=== PATIENT | male | born 1995 | race Caucasian/White ===

== ENCOUNTER 2024-05-28 19:51 | Observation (INO) | payer OTHER, SELFPAY ==
--- NOTE | ~2024-05-28 | CT_ITS ---
CLINICAL INDICATION: Right lower quadrant pain COMPARISON: None. TECHNIQUE: Multiple contiguous axial images of the abdomen and pelvis were performed following the ad ministration of with 100 mL Omnipaque-350 intravenous contrast The dose-length product (DLP) was 735.29 mGy-cm. Automated exposure control and iterative reconstruction technique were employed. FINDINGS/OBSERVATIONS: Visualized lower thorax: The bilateral lung bases are clear. The heart is of normal size, without pericardial effusion. Small hiatal hernia is present. Within the abdomen and pelvis: The appendix is hyperemic, fluid-filled, and thick walled measuring 9 mm in caliber with surrounding inflammatory change. These findings are consistent with acute appendicitis. Liver, spleen, bilateral kidneys, gallbladder and bilateral adrenal glands are unremarkable. The bladder is decompressed. The prostate gland is not enlarged. IMPRESSION: Acute appendicitis, as detailed above. Reviewed, dictated and finalized at location A.
--- OUTSIDE RECORDS SUMMARY | 2024-05-28 19:53 | XMS_ITS | Clinical Summary ---
Author Organization [facility] Address [address] [place] [address] Care Team Providers Care Labor Relations Officer Name Role Phone Zain Feliciano DO Primary Care Provider Source Comments [facility],non-[facility] Affiliates and Associated Physician Practices is amultiple site organization consisting of ambulatory clinics and hospital sitesin [place], [place], [place] and [place]. This disclosure is being madepursuant to the Care Everywhere program and may not contain all information available regarding this patient. Last updated 17.[facility] Allergies No known active allergies Medications * Be aware that medications may not be up to date on this document. Alwaysverify current medications with the patient. Medication Sig Dispensed Refills Start Date End Date Status Cetirizine-Pseudoephed rine (ZYRTEC-D PO) Take 1 Tab by mouth as needed. Active albuterol HFA (PROVENTIL;VENTOLIN;HI OAIR) 108 (90 BASE) MCG/ACT inhaler Inhale 2 Puffs by mouth every 6 hours as needed. Active benzonatate (TESSALON) 100 MG capsule You can take 1-2 tablets PO TID PRN, max dose 6 tablets in 24 hours. 30 Cap 04/19/2016 Active Fluticasone Propionate (FLONASE NA) Active Family History Medical History Relation Name Comments Negative Family History Father Negative Family History Mother Relation Name Status Comments Father Mother Social History Tobacco Use Types Packs/Day Years Used Date Smoking Tobacco: Never Alcohol Use Standard Drinks/Week Comments No 0 (1 standard drink = 0.6 oz pur e alcohol) Sex and Gender Information Value Date Recorded Sex Assigned at Not on file Gender Identity Not on file Sexual Orientation Not on file Last Filed Vital Signs Vital Sign Reading Time Taken Comments Blood Pressure 128/80 04/19/2016 11:27 AM CABLE SPLICER HELPER Pulse 84 04/19/2016 11:27 AM CABLE SPLICER HELPER Temperature 36.7 C (98.1 F) 04/19/2016 11:27 AM CABLE SPLICER HELPER Respiratory Rate 20 04/19/2016 11:27 AM CABLE SPLICER HELPER Oxygen Saturation 98% 04/19/2016 11:27 AM CABLE SPLICER HELPER Inhaled Oxygen Concentration - - Weight 83.9 kg (185 lb) 04/19/2016 11:27 AM CABLE SPLICER HELPER Height 180.3 cm (5' 11 ) 04/19/2016 11:27 AM CABLE SPLICER HELPER Body Mass Index 25.8 04/19/2016 11:27 AM CABLE SPLICER HELPER Plan of Treatment Health Maintenance Due Date Last Done Comments HIV SCREENING 2009 HEPATITIS C SCREENING 06/01/2012 DTAP/TDAP/TD VACCINES (1 - Tdap) 2013 HEPATITIS B VACCINE (1 of 3 - 19+ 3-dose series) 2013 COVID-19 VACCINE ( - 2023-2 5 season) 2023 DEPRESSION SCREENING 02/22/2024 INFLUENZA VACCINE (Season Ended) 2024 ZOSTER VACCINE (1 of 2) 2044 HIB VACCINE Aged Out No longer eligi ble based on patient's age to complete this topic HPV VACCINE Aged Out No longer eligi ble based on patient's age to complete this topic MENINGOCOCCAL (Group B) VACC INE SHARED DECISION-MAKING Aged Out No longer eligibl e based on patient's age to complete this topic MENINGOCOCCAL GROUPS A/C/Y/W VACCINE Aged Out No longer eligible b ased on patient's age to complete this topic PNEUMOCOCCAL VACCINE Aged Out No long er eligible based on patient's age to complete this topic Care Teams Labor Relations Officer Relationship Specialty Start Date End Date Zain Feliciano DO PCP - General 02/22/19
[2024-05-28 20:13] VITALS: BP 119/54; PULSE 85; RESP 16; TEMP 37; O2SAT 97
[2024-05-28 22:03] LABS: Basophils Absolute Auto 0.1 K/mm3 (0.0-0.1); Basophils Percent Auto 0.3 % (0.2-1.2); Eosinophils Percent Auto 0.1 % (0-4.4); Hemoglobin 14.8 g/dL (14.0-18.0); Immature Granulocyte Percent A 0.5 % (0-0.5); Lymphocytes Absolute Auto 0.53 K/mm3 (0.9-3.2); Lymphocytes Percent Auto 2.9 % (18.3-44.2); Mean Corpuscular HGB Conc 36.1 g/dl (32-36); Mean Corpuscular Hemoglobin 32.7 pg (26-34); Mean Corpuscular Volume 90.5 fl (80-100); Mean Platelet Volume 9.9 fl (7.4-10.4); Monocytes Absolute Auto 0.9 K/mm3 (0.1-0.6); Monocytes Percent Auto 4.9 % (2.6-8.5); Neutrophils Absolute Auto 16.8 K/mm3 (1.3-6.7); Neutrophils Percent Auto 91.3 % (45.5-73.1); Platelet Count Result 261 k/mm3 (150-375); Red Blood Count 4.53 M/mm3 (4.6-6.20); Red Cell Distribution Width 10.9 % (11.5-14.5); White Blood Count 18.4 K/mm3 (4.5-10.0)
--- OUTSIDE RECORDS SUMMARY | 2024-05-28 22:04 | XMS_ITS | Clinical Summary ---
Author Organization [facility] Address [address] [place] [address] Care Team Providers Care Agricultural Chemicals Inspector Name Role Phone Zain Feliciano DO Primary Care Provider Source Comments [facility],non-[facility] Affiliates and Associated Physician Practices is amultiple site organization consisting of ambulatory clinics and hospital sitesin [place], [place], [place] and [place]. This disclosure is being madepursuant to the Care Everywhere program and may not contain all information available regarding this patient. Last updated 17.[facility] Allergies No known active allergies Medications * Be aware that medications may not be up to date on this document. Alwaysverify current medications with the patient. Medication Sig Dispensed Refills Start Date End Date Status Cetirizine-Pseudoephed rine (ZYRTEC-D PO) Take 1 Tab by mouth as needed. Active albuterol HFA (PROVENTIL;VENTOLIN;GA OAIR) 108 (90 BASE) MCG/ACT inhaler Inhale [...] Comments Blood Pressure 128/80 04/19/2016 11:27 AM CAP MACHINE OPERATOR Pulse 84 04/19/2016 11:27 AM CAP MACHINE OPERATOR Temperature 36.7 C (98.1 F) 04/19/2016 11:27 AM CAP MACHINE OPERATOR Respiratory Rate 20 04/19/2016 11:27 AM CAP MACHINE OPERATOR Oxygen Saturation 98% 04/19/2016 11:27 AM CAP MACHINE OPERATOR Inhaled Oxygen Concentration - - Weight 83.9 kg (185 lb) 04/19/2016 11:27 AM CAP MACHINE OPERATOR Height 180.3 cm (5' 11 ) 04/19/2016 11:27 AM CAP MACHINE OPERATOR Body Mass Index 25.8 04/19/2016 11:27 AM CAP MACHINE OPERATOR Plan of Treatment Health Maintenance Due Date [...] age to complete this topic Care Teams Agricultural Chemicals Inspector Relationship Specialty Start Date End Date Zain Feliciano DO PCP - General 02/22/19
[2024-05-28 22:06] LABS: Add Urine Microscopic? NO; Appearance Urine Clear (Clear); Bilirubin Urine Negative (Negative); Blood Urine Negative (Negative); Color Urine Yellow (Yellow); Glucose Urine UA Negative (Negative); Ketones Urine 2+ mg/dL (Negative); Leukocyte Esterase Ur Negative LEU/UL (Negative); Nitrate Urine Negative (Negative); Protein Urine Negative (Negative); Specific Grav Ur 1.024 (1.001-1.035); pH Urine 5.5 (5.0-9.0)
[2024-05-28 22:18] LABS: Alanine Aminotransferase 27 U/L (6-50); Albumin Level 4.8 g/dL (3.5-5.1); Alkaline Phosphatase 66 U/L (38-126); Anion Gap 9 mmol/L (4-12); Aspartate Amino Transferase 24 U/L (17-59); Bilirubin,Total 1.2 mg/dL (0.2-1.3); Blood Urea Nitrogen 16 mg/dL (9-20); Carbon Dioxide 27 mmol/L (22-30); Chloride 96 mmol/L (98-107); Estimated CRCL calculation 108 ml/min; Estimated Glomerular Filt Rate > 60; Glucose 130 mg/dL (65-110); Lipase 34 U/L (23-300); Potassium 4.1 mmol/L (3.4-5.0); Sodium 132 mmol/L (137-145)
[2024-05-28 22:51] VITALS: BP 119/67; PULSE 78; RESP 19; O2SAT 97
[2024-05-28] MEDS: SODIUM CHLORIDE 0.9% IV 1,000 ML 999 ML IV CONT (23:21)
[2024-05-28] MEDS: MORPHINE SULFATE (*CRX) 4 MG/ML INJ IV PUSH (23:21)
[2024-05-28] MEDS: ONDANSETRON INJ 4 MG/2 ML VIAL IV PUSH (23:21)
[2024-05-29] VITALS (13 sets, daily range): BP systolic 101–139; BP diastolic 43–78; PULSE 68–96; RESP 15–20; TEMP 36–36.9; O2SAT 91–100; BMI 27.1
--- NOTE | 2024-05-29 00:08 | ED_ITS ---
HPI - Abdominal Pain General Chief Complaint: Abdominal Pain <DEBI Garcia Last Filed: 05/29/24 00:42> Stated Complaint: Right abdominal pain <DEBI Garcia Last Filed: 05/29/24 00:42> Time Seen by Provider: 05/28/24 21:53 <DEBI Garcia Last Filed: 05/29/24 00:42> Source: patient <DEBI Garcia Filed: 05/29/24 00:42> Mode of arrival: ambulatory <DEBI Garcia Filed: 05/29/24 00:42> Limitations: no limitations <DEBI Garcia Filed: 05/29/24 00:42> History of Present Illness HPI narrative: Patient is a 28-year-old male who presents the ED with report of right lower quadrant abdominal pain. Patient reports he developed pain this afternoon that was present is above his belly button. Pain continued to worsen and become more localized to his right lower quadrant throughout the day. Reports nausea and vomiting. Denies issues with diarrhea or constipation. Denies fevers. Has not taken anything for pain. Denies history of similar pain. <DEBI Garcia Last Filed: 05/29/24 00:42> Related Data Home Medications: Home Medications ?Medication ?Instructions ?Recorded ?Confirmed ?Last Taken ?Type No Home Medications 05/29/24 05/29/24 Unknown History <DEBI Garcia Last Filed: 05/29/24 00:42> Allergies/Adverse Reactions: Allergies Allergy/AdvReac Type Severity Reaction Status Date / Time No Known Allergies Allergy Verified 05/29/24 02:51 <DEBI Garcia Last Filed: 05/29/24 00:42> Review of Systems 2 Review of Systems: All systems reviewed & are unremarkable except as noted in HPI. <DEBI Garcia Last Filed: 05/29/24 00:42> All systems reviewed & are unremarkable except as noted in HPI and below < Ethel Moses PA-C - Last Filed: 05/29/24 00:42> [facility] Family History Family History: Family History (Updated 05/29/24 @ 03:02 by Jose Raul Zamora RN) Grandparent Lung cancer Grandparent Lung cancer Other Diabetes mellitus Father Hypertension Mother Hypertension <Ethel Moses PA-C - Last Filed: 05/29/24 00:42> Social History Social History: Social History Smoking status: Never smoker Alcohol intake: current Drinks per week: 7 Substance use: never Do You Feel Safe in your Home?: Yes Lack of Transportation: No Lack of Food: Never True Current Housing: I Have Housing Concerned About Future Housing: No Difficulty Paying Gas/Electric Bills: No Difficulty Paying for Meds: No Currently Unemployed: No Education: High School Diploma/GED Difficulty w/ Childcare or Family Care: No Spiritual care concerns: No <Ethel Moses PA-C - Last Filed: 05/29/24 00:42> Exam 2 Narrative: GENERAL: Well appearing, well-nourished, non-toxic, in no acute distress. HEAD: Normocephalic, atraumatic. RESPIRATORY: Airway patent, respirations nonlabored. Clear to auscultation bilaterally, no rales, rhonchi, wheezing. CARDIOVASCULAR: Regular rate and rhythm without murmurs, rubs, or gallops. ABDOMINAL: Soft, mild tenderness to palpation in periumbilical region. Focal tenderness to palpation with guarding in right lower quadrant, positive McBurney's point. Nondistended. Normoactive BS. MUSCULOSKELETAL: Moves all extremities. No gross deformities. SKIN: Warm, dry, normal color. NEURO: A&O X3. Speech clear. PSYCHIATRIC: Appropriate mood and affect. Normal interaction. <Ethel Moses PA-C - Last Filed: 05/29/24 00:42> Course Vital Signs Vital signs: Vital Signs Temperature 98.6 F 05/28/24 20:13 Pulse Rate 85 05/28/24 20:13 Respiratory Rate 16 05/28/24 20:13 Blood Pressure 119/54 L 05/28/24 20:13 Pulse Oximetry 97 05/28/24 20:13 Oxygen Delivery Room Air 05/28/24 20:13 Temperature 97.8 F 05/29/24 05:16 Pulse Rate 75 05/29/24 05:16 Respiratory Rate 20 05/29/24 05:16 Blood Pressure 103/43 L 05/29/24 05:16 Pulse Oximetry 96 05/29/24 05:16 Oxygen Delivery Room Air 05/29/24 03:52 <Ethel Moses PA-C - Last Filed: 05/29/24 00:42> Vital Signs Temperature 98.6 F 05/28/24 20:13 Pulse Rate 85 05/28/24 20:13 Respiratory Rate 16 05/28/24 20:13 Blood Pressure 119/54 L 05/28/24 20:13 Pulse Oximetry 97 05/28/24 20:13 Oxygen Delivery Room Air 05/28/24 20:13 Temperature 97.8 F 05/29/24 05:16 Pulse Rate 75 05/29/24 05:16 Respiratory Rate 20 05/29/24 05:16 Blood Pressure 103/43 L 05/29/24 05:16 Pulse Oximetry 96 05/29/24 05:16 Oxygen Delivery Room Air 05/29/24 03:52 <Niraj Woodson MD - Last Filed: 05/29/24 07:46> MDM - Abdominal Pain MDM Narrative Medical decision making narrative: Patient presented to ED with right lower quadrant abdominal pain that began today. Associated nausea/vomiting. Vital signs are stable upon arrival. Patient is afebrile here. In no acute distress. CBC with white blood cell count of 18.4. Neutrophil predominance. No bandemia. CMP is unremarkable. Stable electrolytes. Stable kidney function. Normal LFTs and lipase. UA with 2+ ketones. Fluids ongoing. CT scan of abdomen/pelvis was obtained and showing acute appendicitis. Consistent with exam and clinical picture. Patient given pain medication the ED with improvement. Will be started on antibiotics. Will keep NPO. Discussed case with Dr. Sharma, general surgery, accepted patient under his service for admission. Patient is in agreement plan and need for admission. <DEBI Garcia Last Filed: 05/29/24 00:42> Medical Records Attestation: I reviewed the patient's medical records. <Ethel Moses PA-C - Last Filed: 05/29/24 00:42> Lab Data Attestation: I reviewed the patient's lab results. <Ethel Moses PA-C - Last Filed: 05/29/24 00:42> Result diagrams: 05/28/24 21:55 05/28/24 21:55 <Ethel Moses PA-C - Last Filed: 05/29/24 00:42> Labs: Lab Results 05/28/24 05/28/24 Range/Units 21:55 21:58 WBC 18.4 H (4.5-10.0) K/mm3 RBC 4.53 L (4.6-6.20) M/mm3 Hgb 14.8 (14.0-18.0) g/dL Hct 41.0 L (42.0-52.0) % MCV 90.5 (80-100) fl MCH 32.7 (26-34) pg MCHC 36.1 H (32-36) g/dl RDW 10.9 L (11.5-14.5) % Plt Count 261 (150-375) k/mm3 MPV 9.9 (7.4-10.4) fl Immature Gran % (Auto) 0.5 (0-0.5) % Neut % (Auto) 91.3 H (45.5-73.1) % Lymph % (Auto) 2.9 L (18.3-44.2) % [place] % (Auto) 4.9 (2.6-8.5) % Eos % (Auto) 0.1 (0-4.4) % Baso % (Auto) 0.3 (0.2-1.2) % Lymph # (Auto) 0.53 L (0.9-3.2) K/mm3 [place] # (Auto) 0.9 H (0.1-0.6) K/mm3 Eos # (Auto) 0.0 (0-0.3) K/mm3 Baso # (Auto) 0.1 (0.0-0.1) K/mm3 Abs Immat Gran (auto) 0.10 H (0.00-0.031) K/mm3 Absolute Neuts (auto) 16.8 H (1.3-6.7) K/mm3 Absolute Nucleated RBC 0.000 (0.0-0.012) K/mm3 Nucleated RBC % 0.0 (0.0-0.2) % Sodium 132 L (137-145) mmol/L Potassium 4.1 (3.4-5.0) mmol/L Chloride 96 L (98-107) mmol/L Carbon Dioxide 27 (22-30) mmol/L Anion Gap 9 (4-12) mmol/L BUN 16 (9-20) mg/dL Creatinine 0.92 (0.7-1.3) mg/dL Estim Creat Clear Calc 108 ml/min Estimated GFR > 60 (59 - ) Glucose 130 H (65-110) mg/dL Calcium 9.0 (8.4-10.2) mg/dL Total Bilirubin 1.2 (0.2-1.3) mg/dL AST 24 (17-59) U/L ALT 27 (6-50) U/L Alkaline Phosphatase 66 (38-126) U/L Total Protein 8.0 (6.3-8.2) g/dL Albumin 4.8 (3.5-5.1) g/dL Lipase 34 (23-300) U/L Urine Color Yellow (Yellow) Urine Appearance Clear (Clear) Urine pH 5.5 (5.0-9.0) Ur Specific Angelica 1.024 (1.001-1.035) Urine Protein Negative (Negative) mg/dL Urine Glucose (UA) Negative (Negative) mg/dL Urine Ketones 2+ H (Negative) mg/dL Ur Blood (Man) Negative (Negative) Urine Nitrate Negative (Negative) Urine Bilirubin Negative (Negative) Urine Urobilinogen 1.0 (<2.0) mg/dL Leukocyte Esterase Rfl Negative (Negative) NETO/UL <Ethel Moses PA-C - Last Filed: 05/29/24 00:42> Lab Results 05/28/24 05/28/24 Range/Units 21:55 21:58 WBC 18.4 H (4.5-10.0) K/mm3 RBC 4.53 L (4.6-6.20) M/mm3 Hgb 14.8 (14.0-18.0) g/dL Hct 41.0 L (42.0-52.0) % MCV 90.5 (80-100) fl MCH 32.7 (26-34) pg MCHC 36.1 H (32-36) g/dl RDW 10.9 L (11.5-14.5) % Plt Count 261 (150-375) k/mm3 MPV 9.9 (7.4-10.4) fl Immature Gran % (Auto) 0.5 (0-0.5) % Neut % (Auto) 91.3 H (45.5-73.1) % Lymph % (Auto) 2.9 L (18.3-44.2) % [place] % (Auto) 4.9 (2.6-8.5) % Eos % (Auto) 0.1 (0-4.4) % Baso % (Auto) 0.3 (0.2-1.2) % Lymph # (Auto) 0.53 L (0.9-3.2) K/mm3 [place] # (Auto) 0.9 H (0.1-0.6) K/mm3 Eos # (Auto) 0.0 (0-0.3) K/mm3 Baso # (Auto) 0.1 (0.0-0.1) K/mm3 Abs Immat Gran (auto) 0.10 H (0.00-0.031) K/mm3 Absolute Neuts (auto) 16.8 H (1.3-6.7) K/mm3 Absolute Nucleated RBC 0.000 (0.0-0.012) K/mm3 Nucleated RBC % 0.0 (0.0-0.2) % Sodium 132 L (137-145) mmol/L Potassium 4.1 (3.4-5.0) mmol/L Chloride 96 L (98-107) mmol/L Carbon Dioxide 27 (22-30) mmol/L Anion Gap 9 (4-12) mmol/L BUN 16 (9-20) mg/dL Creatinine 0.92 (0.7-1.3) mg/dL Estim Creat Clear Calc 108 ml/min Estimated GFR > 60 (59 - ) Glucose 130 H (65-110) mg/dL Calcium 9.0 (8.4-10.2) mg/dL Total Bilirubin 1.2 (0.2-1.3) mg/dL AST 24 (17-59) U/L ALT 27 (6-50) U/L Alkaline Phosphatase 66 (38-126) U/L Total Protein 8.0 (6.3-8.2) g/dL Albumin 4.8 (3.5-5.1) g/dL Lipase 34 (23-300) U/L Urine Color Yellow (Yellow) Urine Appearance Clear (Clear) Urine pH 5.5 (5.0-9.0) Ur Specific Angelica 1.024 (1.001-1.035) Urine Protein Negative (Negative) mg/dL Urine Glucose (UA) Negative (Negative) mg/dL Urine Ketones 2+ H (Negative) mg/dL Ur Blood (Man) Negative (Negative) Urine Nitrate Negative (Negative) Urine Bilirubin Negative (Negative) Urine Urobilinogen 1.0 (<2.0) mg/dL Leukocyte Esterase Rfl Negative (Negative) NETO/UL <Niraj Woodson MD - Last Filed: 05/29/24 07:46> Imaging Data Attestation: I personally reviewed and interpreted this imaging study as follows: < Ethel Moses PA-C - Last Filed: 05/29/24 00:42> Radiologist's impression: ITS Impressions Abdomen/Pelvis CT 05/28/24 23:48 IMPRESSION: Acute appendicitis, as detailed above. <Ethel Moses PA-C - Last Filed: 05/29/24 00:42> ITS Impressions Abdomen/Pelvis CT 05/28/24 23:48 IMPRESSION: Acute appendicitis, as detailed above. <Niraj Woodson MD - Last Filed: 05/29/24 07:46> Discharge Plan Discharge Clinical Impression: Acute appendicitis Qualifiers: Acute appendicitis type: with localized peritonitis Appendicitis gangrene presence: without gangrene Appendicitis perforation presence: without perforation Appendicitis abscess presence: without abscess Qualified Code(s): K 35.30 - Acute appendicitis with localized peritonitis, without perforation or gangrene <Ethel Moses PA-C - Last Filed: 05/29/24 00:42> Patient Disposition: Still a Patient <DEBI Garcia Last Filed: 05/29/24 00:42> Condition: Stable <Ethel Moses PA-C - Last Filed: 05/29/24 00:42> Attestation Supervising Provider Attestation This visit was performed by both a physician and an APC (MARIE Moses). I performed all aspects of the MDM as documented. <Niraj Woodson MD - Last Filed: 05/29/24 07:46>
[2024-05-29] MEDS: MORPHINE SULFATE (*CRX) 2 MG/ML INJ IV PUSH (00:38)
[2024-05-29] MEDS: metroNIDAZOLE 500 MG/ISO 100ML 500 MG/100 ML BAG 100 MG IVPB ×2 (01:50→09:11)
[2024-05-29] MEDS: MORPHINE SULFATE (*CRX) 4 MG/ML INJ IV PUSH ×5 (02:43→12:36)
[2024-05-29] MEDS: SODIUM CHLORIDE 0.9% IV 1,000 ML 100 ML IV CONT ×2 (02:45→12:37)
--- NOTE | 2024-05-29 03:18 | PC.NURSE ---
PATIENT ARRIVED ON 3 MEDSURG AT 0240
--- NOTE | 2024-05-29 09:35 | P.HP_ITS ---
H&P: HPI History of Present Illness Date/Time: 05/29/24 09:35 Chief Complaint: Right lower quadrant abdominal pain Narrative: This is a 28-year-old man who presented to the ED last night with complaints of right lower quadrant abdominal pain x less than 12 hours. He reports an onset of generalized cramping abdominal pain around 2:30 p.m. yesterday. He reports having a history of IBS and thought the pain was related to these issues initially. Over the next few hours, he developed nausea and vomiting. His pain became more intense and eventually localized into the right lower quadrant. His pain was aggravated by any movement or bending. He reports hitting any bumps on the way to the hospital was extremely painful. Due to his persistent symptoms, he came into the ED for evaluation. [place] [id number] scan showed evidence of acute uncomplicated appendicitis. He was started on IV antibiotics and admitted for surgical evaluation. No previous abdominal surgeries. Review of Systems Review of Systems: All systems reviewed & are unremarkable except as noted in HPI and below PMFSH Past Medical History Medical History IBS (irritable bowel syndrome) Surgical History Surgical History No pertinent past surgical history Family History Family History Grandparent Lung cancer Grandparent Lung cancer Other Diabetes mellitus Father Hypertension Mother Hypertension Social History Social History Smoking status: Never smoker Alcohol intake: current Drinks per week: 7 Substance use: never Do You Feel Safe in your Home?: Yes Lack of Transportation: No Lack of Food: Never True Current Housing: I Have Housing Concerned About Future Housing: No Difficulty Paying Gas/Electric Bills: No Difficulty Paying for Meds: No Currently Unemployed: No Education: High School Diploma/GED Difficulty w/ Childcare or Family Care: No Spiritual care concerns: No Meds Home Medications and Allergies Home Medications ?Medication ?Instructions ?Recorded ?Confirmed ?Type No Home Medications 05/29/24 05/29/24 History Allergies Allergy/AdvReac Type Severity Reaction Status Date / Time No Known Allergies Allergy Verified 05/29/24 02:51 Vital Signs Vital Signs - 24 hr 05/28/24 20:13 05/28/24 22:51 05/29/24 01:00 Temperature 98.6 F Pulse Rate 85 78 76 Respiratory Rate 16 19 15 Blood Pressure 119/54 L 119/67 101/59 L Pulse Oximetry 97 97 97 Oxygen Delivery Room Air 05/29/24 03:42 05/29/24 03:52 05/29/24 05:16 Temperature 98.5 F 97.8 F Pulse Rate 85 75 Respiratory Rate 18 20 Blood Pressure 122/64 103/43 L Pulse Oximetry 98 96 Oxygen Delivery Room Air Exam Const: General: comfortable and no acute distress Nutritional Appearance: average body habitus Orientation/consciousness: patient oriented x3 HENMT: Head: normocephalic and atraumatic Ears: hearing grossly normal bilaterally Mouth: Yes moist mucous membranes Eyes: General: appearance normal, both eyes and all related structures Pupils: Equal, round and reactive pupils present Neck: Neck: normal visual inspection and full ROM Resp: Effort & Inspection: no respiratory distress Auscultation: clear to auscultation bilaterally Cardio: Rate: regular rate Rhythm: regular rhythm Peripheral pulses: Peripheral pulses 2+ throughout GI: Inspection: non-distended and no scars GI Palp: Yes Soft to palpation, Yes Tenderness to palpation present (GI) (RLQ), Yes Guarding due to palpation present (GI) (RLQ), Yes No hepatosplenomegaly present and No Rebound tenderness present Percussion: Yes normal to percussion Auscultation: normal bowel sounds Skin: General skin exam: normal color Neuro: General: moves all extremities and no focal motor deficits Speech: normal speech Motor exam (neuro): 5/5 motor strength present throughout Extrem: General: normal to inspection and no edema Psych: Mental Status: mental status grossly normal Attitude: cooperative Insight: Good insight present (Psych) Judgement: Good judgement present (Psych) H&P: Results Labs Labs: Short CBC 05/28/24 Range/Units 21:55 WBC 18.4 H (4.5-10.0) K/mm3 Hgb 14.8 (14.0-18.0) g/dL Hct 41.0 L (42.0-52.0) % Plt Count 261 (150-375) k/mm3 BMP 05/28/24 21:55 Sodium 132 L Potassium 4.1 Chloride 96 L Carbon Dioxide 27 BUN 16 Creatinine 0.92 Glucose 130 H Calcium 9.0 Liver Function 05/28/24 Range/Units 21:55 Total Bilirubin 1.2 (0.2-1.3) mg/dL AST 24 (17-59) U/L ALT 27 (6-50) U/L Alkaline Phosphatase 66 (38-126) U/L Albumin 4.8 (3.5-5.1) g/dL Urine 05/28/24 Range/Units 21:58 Urine Color Yellow (Yellow) Urine Appearance Clear (Clear) Urine pH 5.5 (5.0-9.0) Ur Specific [place] 1.024 (1.001-1.035) Urine Protein Negative (Negative) mg/dL Urine Glucose (UA) Negative (Negative) mg/dL Imaging CT scan - abdomen: Radiologist's impression: ITS Impressions Abdomen/Pelvis CT 05/28/24 23:48 IMPRESSION: Acute appendicitis, as detailed above. Assessment and Plan Assessment and plan (1) Acute appendicitis: Qualifiers: Acute appendicitis type: with localized peritonitis Appendicitis abscess presence: without abscess Appendicitis gangrene presence: without brandon grene Appendicitis perforation presence: without perforation Qualified Code(s): K35.30 - Acute appendicitis with localized peritonitis, without perf oration or gangrene Code(s): K35.80 - Unspecified acute appendicitis Status: Acute Assessment and Plan: CT scan reviewed and discussed with the patient. There is evidence of acute appendicitis. No perforation or abscess evident on CT. We discussed both nonoperative treatment with IV antibiotics/monitoring versus proceeding with surgery. We discussed the details of a laparoscopic appendectomy, possible open, under general anesthesia that would be done by Dr. Sharma. Description of the procedure, risks, benefits, alternatives, and expected recovery were discussed. He agrees to proceed with surgery. We will keep him NPO and continue IV antibiotics, IV fluids, and analgesics pre-operatively. He has been added to the surgery schedule today. Plan I have discussed the patient's case and plan of care with Dr. Sharma.
--- NOTE | 2024-05-29 14:06 | WPDHPUPDATE1 ---
History and Physical Update Update Date/Time: 05/29/24 14:06 History and Physical has been reviewed, including an updated exam of the patient. There are NO changes in the patient's condition. Risks, benefits, and alternatives have been discussed and questions answered. Patient agrees to proceed with procedure.
[2024-05-29] MEDS: LACTATED RINGERS 1,000 ML 30 ML IV CONT (15:00)
--- NOTE | 2024-05-29 15:05 | P.PNAN_ITS ---
Anes - Initial Pre Proc Eval Procedure: Operation Date: 05/29/24 16:00 Proposed Procedures p Laparoscopic Appendectomy - Pamela Sharma MD Date/Time: 05/29/24 15:05 Surgeon: Pamela Sharma MD Pre Op Diagnosis: acute appendicitis Patient Data Age: 28 Gender: M Height: 1.78 m Weight: 85.8 kg Last Vital Signs Temp 36.3 C L 05/29/24 14:00 Pulse 68 05/29/24 14:00 Resp 16 05/29/24 14:00 BP 122/51 L 05/29/24 14:00 Pulse Ox 96 05/29/24 14:00 O2 Del Method Room Air 05/29/24 03:52 Allergies Allergy/AdvReac Type Severity Reaction Status Date / Time No Known Allergies Allergy Verified 05/29/24 02:51 Home Medications ?Medication ?Instructions ?Recorded ?Confirmed ?Type No Home Medications 05/29/24 05/29/24 History Laboratory Tests 05/28/24 05/28/24 21:55 21:58 WBC 18.4 H K/mm3 (4.5-10.0) RBC 4.53 L M/mm3 (4.6-6.20) Hgb 14.8 g/dL (14.0-18.0) Hct 41.0 L % (42.0-52.0) MCV 90.5 fl (80-100) MCH 32.7 pg (26-34) MCHC 36.1 H g/dl (32-36) RDW 10.9 L % (11.5-14.5) Plt Count 261 k/mm3 (150-375) MPV 9.9 fl (7.4-10.4) Immature Gran % (Auto) 0.5 % (0-0.5) Neut % (Auto) 91.3 H % (45.5-73.1) Lymph % (Auto) 2.9 L % (18.3-44.2) [place] % (Auto) 4.9 % (2.6-8.5) Eos % (Auto) 0.1 % (0-4.4) Baso % (Auto) 0.3 % (0.2-1.2) Lymph # (Auto) 0.53 L K/mm3 (0.9-3.2) [place] # (Auto) 0.9 H K/mm3 (0.1-0.6) Eos # (Auto) 0.0 K/mm3 (0-0.3) Baso # (Auto) 0.1 K/mm3 (0.0-0.1) Abs Immat Gran (auto) 0.10 H K/mm3 (0.00-0.031) Absolute Neuts (auto) 16.8 H K/mm3 (1.3-6.7) Absolute Nucleated RBC 0.000 K/mm3 (0.0-0.012) Nucleated RBC % 0.0 % (0.0-0.2) Sodium 132 L mmol/L (137-145) Potassium 4.1 mmol/L (3.4-5.0) Chloride 96 L mmol/L (98-107) Carbon Dioxide 27 mmol/L (22-30) Anion Gap 9 mmol/L (4-12) BUN 16 mg/dL (9-20) Creatinine 0.92 mg/dL (0.7-1.3) Estim Creat Clear Calc 108 ml/min Estimated GFR > 60 (59 - ) Glucose 130 H mg/dL (65-110) Calcium 9.0 mg/dL (8.4-10.2) Total Bilirubin 1.2 mg/dL (0.2-1.3) AST 24 U/L (17-59) ALT 27 U/L (6-50) Alkaline Phosphatase 66 U/L (38-126) Total Protein 8.0 g/dL (6.3-8.2) Albumin 4.8 g/dL (3.5-5.1) Lipase 34 U/L (23-300) Urine Color Yellow (Yellow) Urine Appearance Clear (Clear) Urine pH 5.5 (5.0-9.0) Ur Specific [place] 1.024 (1.001-1.035) Urine Protein Negative mg/dL (Negative) Urine Glucose (UA) Negative mg/dL (Negative) Urine Ketones 2+ H mg/dL (Negative) Ur Blood (Man) Negative (Negative) Urine Nitrate Negative (Negative) Urine Bilirubin Negative (Negative) Urine Urobilinogen 1.0 mg/dL (<2.0) Leukocyte Esterase Rfl Negative NETO/UL (Negative) Patient hx anesthesia problems: other (awareness during dental procedures) Family hx anesthesia problems: none Results Review: All pre-operative results and documents have been reviewed as part of the pre- operative evaluation. [facility] Past Medical History Medical History IBS (irritable bowel syndrome) Surgical History Surgical History No pertinent past surgical history Family History Family History Grandparent Lung cancer Grandparent Lung cancer Other Diabetes mellitus Father Hypertension Mother Hypertension Social History Social History Smoking status: Never smoker Alcohol intake: current Drinks per week: 7 Substance use: never Do You Feel Safe in your Home?: Yes Lack of Transportation: No Lack of Food: Never True Current Housing: I Have Housing Concerned About Future Housing: No Difficulty Paying Gas/Electric Bills: No Difficulty Paying for Meds: No Currently Unemployed: No Education: High School Diploma/GED Difficulty w/ Childcare or Family Care: No Spiritual care concerns: No Anes - Eval Final PreProcedure Day of Procedure 05/29/24 15:05 Patient weight: overweight Heart: regular rate and rhythm Lungs: clear to auscultation Airway: Mallampati scale class III Neurological: alert and oriented Last oral intake: >/= 8 hours ASA classification: II Emergent: yes Anesthetic plan: proceed Anesthesia type and monitoring: general ETT and standard monitoring Results Review: All pre-operative results and documents have been reviewed as part of the pre-operative evaluation. Informed Consent: The patient's anesthetic plan and its attendant risks and benefits were discussed with the patient/family/POA. Questions were solicited and answers provided to the satisfaction of the patient/family/POA.
--- NOTE | 2024-05-29 15:57 | W.PM.PROC2 ---
Procedure Note - Detailed Date of Procedure 05/29/24 Pre-op Diagnosis acute appendicitis Post-op Diagnosis Same Procedure Performed laparoscopic appendectomy Surgeon Pamela Sharma MD Anesthesia General Indications 28-year-old male presenting to the emergency department with acute appendicitis Findings acute appendicitis no evidence of perforation Description of Procedure The patient was taken to the operating room and placed in the supine position. After adequate induction of general anesthesia, the patient was prepped and draped in the normal sterile fashion. A time-out was then done to verify the patient's identity, as well as the procedure being performed. I began by making a 5 mm incision in the infraumbilical region, through this a Veress needle was placed in the peritoneal cavity. CO2 gas was then insufflated and after adequate pneumoperitoneum was achieved the Veress needle was removed. Then placed a 5 mm Optiview trocar under direct visualization into the peritoneal cavity. I then insufflated through this trocar site and the endoscope was placed into the trocar. Under direct visualization, placed 2 further 5 mm suprapubic port as well as an additional 12 mm port in the left lower abdomen. At this point identified the cecum, I retracted the cecum both medially and superiorly allowing me to expose the appendix. There was a moderate amount thin free fluid around the appendix, all indicative of acute inflammation. The appendix was noted to be very dilated and inflamed. The appendix was noted to be very adherent to the right lateral sidewall as well as the ileum. I was able to bluntly dissect the appendix from these adhesions. I then was able to locate the base of the appendix with the cecum. I created a window with the [place] dissector between the appendix itself and the mesoappendix. I then transected the mesoappendix with a white vascular staple load. The Endo-REINIER was then reloaded with a blue staple load and I transected the base of the appendix. Once the specimen was completely detached, an endo-pouch was placed into the 12 mm port site and the specimen was removed through the endo-pouch. The appendiceal specimen will be sent to pathology for further review. I then copiously irrigated the right lower quadrant. Hemostasis was noted at both staple lines no other pathology was seen in this area. I then moved the camera to the suprapubic port to check our its port of entry. No iatrogenic injury or other pathology was noted in the upper abdomen. I then closed the 12 mm port site with a Ricardo code and 0 Vicryl suture under direct visualization. At this point, the abdomen was desufflated and all ports were removed. All port sites were closed with 4 Monocryl subcuticular suture. Dermabond was placed on all wounds. The patient tolerated the procedure well and was extubated in the operating room postop. He will be sent to the recovery room in stable condition. Estimated Blood Loss 10 Drains No Packing No Pathology Yes Complications No immediate complications Condition Stable Disposition PACU [facility] Billing Surgery - Charge Forward: Surgery Billing
[2024-05-29] MEDS: HYDROcodone/acetaminophen (*CRX) 5-325 MG TABLET 1 TAB PO (17:50)
--- NOTE | 2024-05-30 10:07 | P.DS_ITS ---
DS: Admitting Diagnosis Discharge Date 05/29/24 Admitting Diagnosis Acute appendicitis DS: Discharge Diagnosis Discharge Diagnosis (1) Acute appendicitis: Qualifiers: Acute appendicitis type: with localized peritonitis Appendicitis abscess presence: without abscess Appendicitis gangrene presence: without gangrene Appendicitis perforation presence: without perforation Qualified Code(s): K35.30 - Acute appendicitis with localized peritonitis, without perforation or gangrene Code(s): K35.80 - Unspecified acute appendicitis Status: Acute Assessment and Plan: status post appendectomy, home with routine postoperative care, p.o. analgesia and Colace, follow-up 2 weeks DS: Summary Hospital Course Reason for hospitalization: acute appendicitis Hospital Course: The patient is a 28-year-old male presenting to the emergency department complaining of severe right lower quadrant abdominal pain. Workup including imaging, significant for acute appendicitis. Patient admitted to the Surgical Service then upon evaluation the decision was made to proceed with urgent appendectomy. The patient was NPO and started on IV antibiotics. The patient was taken to the operating room and laparoscopic appendectomy was performed, please see full operative report for details of that procedure. Postoperatively, the patient did well and was transferred back to the floor. He reports that he feels much improved and is now tolerating a diet. His pain is well controlled with p.o. analgesia. The patient will be discharged home at this time with instructions for routine postoperative care. He will be sent home with prescription for p.o. analgesia and Colace. He will follow up in 2 weeks. Status at Discharge Functional status at discharge: independent ambulation Overall status at discharge: patient is progressing back to baseline Time Spent with Patient Time attestation: Total time spent providing and/or coordinating discharge services: Time spent: Less than 30 minutes Exam Const: General: cooperative, comfortable and no acute distress Resp: Auscultation: clear to auscultation bilaterally Cardio: Rate: regular rate Rhythm: regular rhythm GI: Inspection: normal to inspection, distended and incision GI Palp: Yes abdominal tenderness and Yes Soft to palpation DS: Data Data Completed and Pending Pending studies at discharge: Pending at discharge 05/29/24 15:43 Surgical [PTH] Routine Discharge Plan Discharge Attending physician on discharge: Pamela Sharma Consulting providers: Will Fitch; Suyapa Ortiz; Niraj Woodson; Indra Jain; Dara Live Discharging Clinician: Pamela Sharma Anticipated Discharge Date/Time: 05/29/24 19:00 Patient Disposition: Home Activity: may shower and as tolerated Diet: as tolerated Wound Care Instructions: incision open to air Discharge Instructions: DISCHARGE INSTRUCTION SHEET FOR HERNIA, GALLBLADDER AND APPENDIX SURGERIES DR. SHARMA PATIENT TO TAKE HOME 1. May shower in 24 hours, no soaking in bath x 2weeks. 2. Call office for: * Wound increasingly painful or bleeding * Vomiting * Fever of greater than 101 degrees 3. If no bowel movement for three days, take 1 oz. (30 ml) Milk of Magnesia or MiraLax 17g 1 to 2 times daily. 4. No heavy lifting > 10-15 pounds x 6 weeks for hernia repairs and 2 weeks for laparoscopic cholecystectomy or appendectomy. 5. No driving for 3 days or while taking narcotic pain medications. 6. Ice to surgical site for 48 hours (30 min on, then 30 min off). 7. Up walking 10-30 minutes three times per day. 8. Resume previous home medications. 9. Follow-up 10-14 days in office for wound check or as previously scheduled. ([id number]) 10. Oral pain medications prescription to be sent to pharmacy. Take Tylenol 500mg every 6 hours and Ibuprofen 600mg every 6 hours for the first 2 days, then as needed. 11. NUTRITION: Start out by drinking fluids and increase your diet as tolerated. If you experience nausea, try dry toast, crackers, and 7-UP. If nausea or vomiting persists, contact your surgeon?s office. 12. Gallbladders-Low Fat Diet for 2 weeks (send care note of low fat diet) 13. Inguinal Hernias-wear scrotal support for 48 hours 14. Abdominal Hernias-if sent home with abdominal binder, wear for the first 2 weeks (may remove to shower or at night to sleep). Revised 02/2020 Patient Instructions: Antibiotic Form Patient Language: Faroese Stand Alone Forms: General Discharge Information Follow-up/Referrals: Pamela Sharma MD [Physician] - 2 Weeks Discharge Medications: New hydrocodone-acetaminophen 5-325 mg tablet 1 tablet PO Q6H PRN (Reason: pain) Qty: 20 0RF docusate sodium [Colace] 100 mg capsule 100 mg PO BID Qty: 20 0RF Date of admission: 05/29/24 00:11 Primary Care Provider: PHYSICIAN,PERSONAL CARE AIDE Admitting Provider: Pamela Sharma Attending physician on admission: Pamela Sharma Condition: Stable
== END 2024-05-29 19:05 | disposition home or self-care (01) ==
LOC: ANHED 05-29 00:42 → ANH3MEDSUR 05-29 01:59
PROVIDERS: Family Medicine; Admitting Provider Surgery; Emergency Provider Physician Assistant; Visit Provider Surgery
PROC: 0DTJ4ZZ Resection of Appendix, Percutaneous Endoscopic Approach (ICD-10-PCS; CPT 44970; principal; 2024-05-29 16:00)
DX: K35.80 Unspecified acute appendicitis (principal); K58.9 Irritable bowel syndrome, unspecified
CPT/HCPCS: 44970; 36415; 74177; 80053; 81003; 83690; 85025; 88304; 96361; 96365; 96367; 96374; 96375; 96376; 99285; A9270; G0378; J0696; J1100; J1171; J1836; J2250; J2270; J2405; J2704; J3010; J7030; J7120; Q9967